=== PATIENT | male | born 1955 | race Caucasian/White ===

== ENCOUNTER → 2017-05-24 | Outpatient (CLI) | payer BC ==
[~2017-05-24] MED LIST: ASPI81TA28 PO; DVN80 PO; FEXO1TAB49 PO; MULT-506 PO; ONDA4TAB65 PO; OXYC1TAB3 PO; PRT/20 PO
--- NOTE | 2017-05-24 18:36 | ECHOCARDIOGRAM REPORT ---
*NOTICE TO RECEIVING [employer] This information is strictly Confidential and protected under [place] law. [place] law prohibits you from making any further disclosure of this information unless further disclosure is expressly permitted by the written consent of the person to whom it pertains or is authorized by law. A general authorization for the release of medical or other information is not sufficient for this purpose. Hospital accepts no responsibility if the information is made available to any other person, INCLUDING THE PATIENT. Interpretation Summary * Name: BRYNN IBRAHIM Study Date: 05/24/2017 12:43 PM BP: 132/86 mmHg * Patient Location: [facility] [place], [facility] HR: 68 * : 1955 (M/d/yyyy) Gender: Male Height: 66 in * Age: 61 yrs Ethnicity: [place] Weight: 150 lb * Ordering Physician: Perry Chacko * Referring Physician: Perry Chacko. * Performed By: Kavitha Muro RCS * * Reason For Study: Near Syncope, Murmur * BSA: 1.8 m2 * -- Conclusions -- * 1. Normal left ventricular size and systolic function. EF 60-65%. No regional wall motion abnormalities. No left ventricular hypertrophy. No significant diastolic dysfunction. * 2. No significant valvular abnormalities visualized. * 3. Normal estimated right ventricular systolic pressure. * 4. No significant change from prior study on 01/01/2009. Procedure Details * A complete two-dimensional transthoracic echocardiogram was performed (2D, M-mode, Doppler and color flow Doppler). Left Ventricle * Normal left ventricular size and systolic function. EF 60-65%. No regional wall motion abnormalities. No left ventricular hypertrophy. No significant diastolic dysfunction. Right Ventricle * The right ventricle is normal in size and function. * The right ventricular systolic function is normal as assessed by tricuspid annular plane systolic excursion (TAPSE) (normal >1.5 cm). Atria * The left atrial size is normal. * Right atrial size is normal. * There is no evidence of atrial septal defect, but resolution does not allow assessment for a patent foramen ovale. Mitral Valve * The mitral valve leaflets appear normal. There is no evidence of stenosis, fluttering, or prolapse. * There is trace mitral regurgitation. Tricuspid Valve * The tricuspid valve is not well visualized, but is grossly normal. * There is no tricuspid stenosis. * There is trace tricuspid regurgitation. Aortic Valve * The aortic valve is trileaflet. * No hemodynamically significant valvular aortic stenosis. * No aortic regurgitation is present. Pulmonic Valve * The pulmonary valve is inadequately visualized, but the Doppler data is adequate for interpretation. * There is no pulmonic valvular stenosis. * Trace pulmonic valvular regurgitation. Great Vessels * The aortic root is normal size. * Ascending aorta of normal dimension * Normal pulmonary venous flow pattern. Pericardium/Pleural * There is no pericardial effusion. Great Vessels * Normal IVC size with reduced inspiratory collapse. MMode 2D Measurements and Calculations IVSd 0.93 cm IVSs 1.2 cm LVIDd 4.2 cm LVIDs 2.8 cm LVPWd 0.94 cm LVPWs 1.2 cm IVS/LVPW 0.98 FS 34.6 % EDV(Teich) 79.1 ml ESV(Teich) 28.4 ml EF(Teich) 64.1 % EDV(cubed) 74.7 ml ESV(cubed) 20.9 ml EF(cubed) 72.0 % % IVS thick 24.7 % % LVPW thick 26.4 % LV mass(C)d 125.4 grams LV mass(C)dI 70.9 grams/m\S\2 LV mass(C)s 93.6 grams LV mass(C)sI 52.9 grams/m\S\2 SV(Teich) 50.7 ml SI(Teich) 28.6 ml/m\S\2 SV(cubed) 53.8 ml SI(cubed) 30.4 ml/m\S\2 Ao root diam 3.7 cm Ao root area 11.0 cm\S\2 ACS 1.7 cm LA dimension 2.7 cm asc Aorta Diam 3.2 cm LA/Ao 0.73 Doppler Measurements and Calculations MV E max halima 74.7 cm/sec MV A max halima 48.5 cm/sec MV E/A 1.5 MV P1/2t max halima 80.7 cm/sec MV P1/2t 80.4 msec MVA(P1/2t) 2.7 cm\S\2 MV dec slope 294.0 cm/sec\S\2 MV dec time 0.19 sec Ao V2 max 144.2 cm/sec Ao max PG 8.3 mmHg Ao max PG (full) 2.2 mmHg LV V1 max PG 6.1 mmHg LV V1 max 123.5 cm/sec PA V2 max 76.0 cm/sec PA max PG 2.3 mmHg TR max halima 163.7 cm/sec RVSP(TR) 18.7 mmHg RAP systole 8.0 mmHg
== END | disposition home or self-care (01) ==
LOC: C.CPL 12:32
PROVIDERS: ATTEND Family Medicine
DX: R55 Syncope and collapse (principal); R01.1 Cardiac murmur, unspecified

== ENCOUNTER → 2017-08-22 | Outpatient (CLI) | payer BC | END | disposition home or self-care (01) | LOC: C.PATHSPEC 17:50 | PROVIDERS: ATTEND Plastic Surgery | DX: D22.5 Melanocytic nevi of trunk (principal); D22.71 Melanocytic nevi of right lower limb, including hip ==